=== PATIENT | male | born 1950 | race Caucasian/White ===

== ENCOUNTER 2020-12-17 12:04 | Emergency (ER) | payer OTHER ==
[~2020-12-17] VITALS: Ht 182.9 cm; Wt 88.5 kg
[2020-12-17 13:27] LABS: BASOPHILS 0.3 % (0.0-2.0); EOSINOPHILS 1.3 % (0.0-3.0); HEMATOCRIT 41.4 % (42.0-52.0); HEMOGLOBIN 14.3 gm/dL (14.0-18.0); LYMPHOCYTES 26.8 % (24.0-44.0); MCH 30.9 pg (26.0-34.0); MCHC 34.4 g/dL (28.0-37.0); MCV 89.9 fL (80.0-100.0); MONOCYTES 8.6 % (1.0-8.0); PLATELET COUNT 172 thou/uL (150-400); RBC 4.61 mil/uL (4.50-6.00); RDW 12.9 % (10.5-14.5); WBC 6.3 thou/uL (4.0-11.0)
[2020-12-17 13:30] LABS: CREATININE 1.2 mg/dL (0.7-1.3)
[2020-12-17 13:38] LABS: URINE BILIRUBIN NEGATIVE (Negative); URINE BLOOD NEGATIVE (Negative); URINE CLARITY CLEAR; URINE COLOR YELLOW; URINE GLUCOSE-RANDOM* NEGATIVE (Negative); URINE KETONES NEGATIVE (Negative); URINE LEUKOCYTES-REFLEX NEGATIVE (Negative); URINE NITRITE-REFLEX NEGATIVE (Negative); URINE PROTEIN (DIPSTICK) NEGATIVE (Negative); URINE UROBILINOGEN 0.2 E.U./dl (0.2-1.0)
[2020-12-17 14:27] VITALS: BP 144/81
--- NOTE | 2020-12-18 08:19 | EKG ---
[address] [place] [employer] [address] ELECTROCARDIOGRAM REPORT Name: OLGA HERNADEZ Room #: [facility]#: [id number] Admission: 12/17/20 Attend Phys: Discharge: 12/17/20 Date of : 46 Report #: [id number] [facility] ED Test Date: 2020-12-17 Test Time: 12:16:58 Pat Name: OLGA HERNADEZ Department: Room: Gender: M [employer]: unknown : 1950 Requested By: Carmina Montano Order Number: [id number] MD: Dylan Peng Measurements Intervals Thor Rate: 66 P: 39 WY: 202 QRS: -18 QRSD: 96 T: 0 QT: 369 QTc: 387 Interpretive Statements Sinus rhythm Inferior infarct, old Compared to ECG 07/12/2010 15:51:44 Myocardial infarct finding now present Electronically Signed On 12-18-2020 8:19:36 CDT by Dylan Peng [email or web address] <ELECTRONICALLY SIGNED> By: Dylan Peng MD, [facility] 12/18/20 0819 1216 1216 Dylan Peng MD, FACC /EPI
== END 2020-12-17 14:28 | disposition home or self-care (01) ==
LOC: ER 12:04
PROVIDERS: Emergency Medicine
DX: R41.0 Disorientation, unspecified (principal); R51.9 Headache, unspecified